=== PATIENT | male | born 2000 | race Caucasian/White ===

== ENCOUNTER 2023-03-16 20:13 | Emergency (ER) | payer SELFPAY ==
[2023-03-16] MEDS ORDERED: Morphine 4 MG/ML VIAL ONE ×2 (21:20→23:27)
[2023-03-16] MEDS ORDERED: Ondansetron PF 4 MG/2 ML Vial ONE (21:20)
[2023-03-16] MEDS ORDERED: Morphine 2 MG/ML VIAL ONE (21:38)
== END 2023-03-16 23:35 | disposition home or self-care (01) ==
LOC: ERS 20:13
DX: N13.2 Hydronephrosis with renal and ureteral calculous obstruction (principal)
CPT/HCPCS: 74176; 96361; 96374; 96375; 96376; J2270; J2272; J2405